=== PATIENT | female | born 1995 | race Two or more races ===

== ENCOUNTER 2022-08-06 17:46 | Inpatient (IN) | payer MEDICAID ==
[~2022-08-06] VITALS: Ht 160 cm; Wt 63.2 kg
[2022-08-06] MEDS ORDERED: LORazepam 2 MG TABLET PO PRN (21:45)
[2022-08-06] MEDS ORDERED: HALOPERIDOL 5 MG TABLET PO PRN (21:45)
[2022-08-06] MEDS ORDERED: ZOLPIDEM TARTRATE 10 MG TABLET PO PRN (21:45)
[2022-08-06 23:44] VITALS: BP 107/61
[2022-08-06] MEDS ORDERED: PNEUMOCOCCAL VACCINE POLYVALENT 0.5 ML VIAL [PPSV23] IM. ONE (23:45)
[2022-08-06] MEDS ORDERED: INFLUENZA VIRUS VACCINE QVS 2022-23 (6MO+)/PF 60 MCG/0.5 ML SYRINGE IM. ONE (23:45)
[2022-08-07 08:19] VITALS: BP 104/60
[2022-08-07] MEDS ORDERED: ACETAMINOPHEN 325 MG TABLET PO PRN (13:00)
[2022-08-07] MEDS ORDERED: ONDANSETRON HCL 4 MG TABLET PO PRN (13:00)
[2022-08-07] MEDS ORDERED: CloNIDine HCL 0.1 MG TABLET PO PRN (13:00)
[2022-08-07] MEDS ORDERED: IBUPROFEN 600 MG TABLET PO PRN (13:00)
[2022-08-07] MEDS ORDERED: MAGNESIUM HYDROXIDE SUSPENSION 30 ML UDCUP PO PRN (13:00)
[2022-08-07] MEDS ORDERED: OMEPRAZOLE 20 MG CAPSULE PO PRN (13:00)
[2022-08-07] MEDS ORDERED: DOCUSATE SODIUM 100 MG CAPSULE PO PRN (13:00)
[2022-08-07] MEDS ORDERED: BACITRACIN 28 GM OINTMENT TP PRN (13:00)
[2022-08-07] MEDS ORDERED: LOPERAMIDE HCL 2 MG CAPSULE PO PRN (13:00)
[2022-08-07] MEDS ORDERED: MAG HYDROX/AL HYDROX/SIMETH ES 30 ML SUSPENSION UDCUP PO PRN (13:00)
[2022-08-07] MEDS ORDERED: PETROLATUM,WHITE 28 GM JELLY TP PRN (13:00)
[2022-08-07] MEDS ORDERED: ALBUTEROL SULFATE HFA 90 MCG/PUFF 8 GM INHALER IH PRN (13:00)
[2022-08-07] MEDS ORDERED: BENZOCAINE/MENTHOL LOZENGE PO PRN (13:00)
[2022-08-07] MEDS: RisperiDONE 2 MG TABLET PO SCH (16:45)
[2022-08-07] MEDS: LITHIUM CARBONATE 300 MG CAPSULE PO SCH (16:45)
[2022-08-07] MEDS: DIVALPROEX SODIUM 500 MG DR TABLET PO SCH (16:45)
[2022-08-07 20:19] VITALS: BP 104/60
[2022-08-08] MEDS: RisperiDONE 2 MG TABLET PO SCH ×3 (08:50→17:00)
[2022-08-08] MEDS: LITHIUM CARBONATE 300 MG CAPSULE PO SCH ×3 (08:50→17:00)
[2022-08-08] MEDS: DIVALPROEX SODIUM 500 MG DR TABLET PO SCH ×3 (08:50→17:00)
[2022-08-08 20:20] VITALS: BP 109/73
[2022-08-09] MEDS: RisperiDONE 2 MG TABLET PO SCH ×3 (08:29→17:00)
[2022-08-09] MEDS: LITHIUM CARBONATE 300 MG CAPSULE PO SCH ×3 (08:29→17:00)
[2022-08-09] MEDS: DIVALPROEX SODIUM 500 MG DR TABLET PO SCH ×3 (08:29→17:00)
[2022-08-09 09:00] VITALS: BP 105/61
[2022-08-09 21:00] VITALS: BP 100/71
[2022-08-09 21:30] VITALS: BP 106/65
[2022-08-09 22:13] VITALS: BP 109/63
[2022-08-10 08:51] VITALS: BP 115/70
[2022-08-10] MEDS: RisperiDONE 2 MG TABLET PO SCH ×2 (09:00→16:55)
[2022-08-10] MEDS: LITHIUM CARBONATE 300 MG CAPSULE PO SCH ×2 (09:00→16:55)
[2022-08-10] MEDS: DIVALPROEX SODIUM 500 MG DR TABLET PO SCH ×2 (09:00→16:55)
[2022-08-10 21:12] VITALS: BP 118/64
[2022-08-11] MEDS: RisperiDONE 2 MG TABLET PO SCH ×2 (09:00→17:00)
[2022-08-11] MEDS: LITHIUM CARBONATE 300 MG CAPSULE PO SCH ×2 (09:00→17:00)
[2022-08-11] MEDS: DIVALPROEX SODIUM 500 MG DR TABLET PO SCH ×2 (09:00→17:00)
[2022-08-11 09:50] VITALS: BP 100/62
[2022-08-12] MEDS: LITHIUM CARBONATE 300 MG CAPSULE PO SCH (09:00)
[2022-08-12] MEDS: RisperiDONE 2 MG TABLET PO SCH (09:00)
[2022-08-12] MEDS: DIVALPROEX SODIUM 500 MG DR TABLET PO SCH (09:00)
[2022-08-12 09:10] VITALS: BP 100/60
[2022-08-12] MEDS ORDERED: RISP2TAB86 PO (13:22)
[2022-08-12] MEDS ORDERED: DIVA-112 PO (13:22)
== END 2022-08-12 14:22 | disposition home or self-care (01) | DRG 754 ==
LOC: B3A 22:30 → B2S 08-09 20:17
PROVIDERS: ADMIT Psychiatry & Neurology Psychiatry; ATTEND Psychiatry & Neurology Psychiatry
DX: F32.9 Major depressive disorder, single episode, unspecified (principal); E11.22 Type 2 diabetes mellitus with diabetic chronic kidney disease; F41.9 Anxiety disorder, unspecified; G47.00 Insomnia, unspecified; I12.9 Hypertensive chronic kidney disease with stage 1 through stage 4 chronic kidney disease, or unspecified chronic kidney disease; Z20.822 Contact with and (suspected) exposure to COVID-19; J44.9 Chronic obstructive pulmonary disease, unspecified; N18.9 Chronic kidney disease, unspecified; E66.9 Obesity, unspecified; K21.9 Gastro-esophageal reflux disease without esophagitis; F20.9 Schizophrenia, unspecified; Z68.24 Body mass index [BMI] 24.0-24.9, adult; Z82.49 Family history of ischemic heart disease and other diseases of the circulatory system; Z83.3 Family history of diabetes mellitus
CPT/HCPCS: J3535